=== PATIENT | male | born 1995 | race Two or more races ===

== ENCOUNTER 2024-08-29 19:31 | Emergency (ER) | payer OTHER ==
[~2024-08-29] VITALS: Ht 182.9 cm; Wt 101.0 kg
[2024-08-29] MEDS ORDERED: IBUP-1455 PO (21:33)
[2024-08-29 22:00] VITALS: BP 155/96; PULSE 66; RESP 16; TEMP 98.6; O2SAT 97
[2024-08-29] MEDS: HYDROcodone-ACET 5/325MG TAB PO ONE (22:13)
[2024-08-29] MEDS: KETOROLAC TROMETH 60MG/2ML VIAL IM ONE (22:15)
== END 2024-08-29 22:20 | disposition home or self-care (01) ==
LOC: ER 19:31
DX: S16.1XXA Strain of muscle, fascia and tendon at neck level, initial encounter (principal); E66.01 Morbid (severe) obesity due to excess calories; Z68.30 Body mass index [BMI] 30.0-30.9, adult; Z88.0 Allergy status to penicillin; V49.88XA Car occupant (driver) (passenger) injured in other specified transport accidents, initial encounter; Y93.I9 Activity, other involving external motion; Y92.89 Other specified places as the place of occurrence of the external cause; Y99.8 Other external cause status
CPT/HCPCS: 72040; 96372; 99283; J1885